=== PATIENT | female | born 1945 | race Asian ===

== ENCOUNTER 2018-05-17 19:09 | Emergency (ER) | payer SELFPAY ==
--- NOTE | 2018-05-17 19:20 | ER Report ---
History and Physical Time Seen By MD: 19:20 HPI/ROS CHIEF COMPLAINT: High blood pressure HISTORY OF PRESENT ILLNESS: This is a 72-year-old female from [facility] visiting her son who presents to the emergency department for hypertension. The patient has been intermittent for approximately 3 weeks, they were in [facility] last week and upon returning recently the patient noted her blood pressure had started to increase. Patient does take 25 mg metoprolol splits it in half takes half the morning and half in the evening. Over the last week or so she's had intermittent lightheadedness when she gets up in the morning however that does resolve, no other complaints no headaches no nausea or vomiting. No chest pain or shortness of breath. At home they noted the systolic blood pressure above 190. She was instructed to take amlodipine for systolic blood pressure greater than 180, but she left it in [place]. REVIEW OF SYSTEMS: Respiratory: No cough, no dyspnea. Cardiovascular: No chest pain, no palpitations. Gastrointestinal: No vomiting, no abdominal pain. Musculoskeletal: No back pain. Allergies: Coded Allergies: No Known Drug Allergies (Unverified , 05/17/18) Home Meds Active Scripts Amlodipine Besylate (AMLODIPINE BESYLATE) 5 Mg Tablet, 0.5 TAB PO QDAY, #15 TAB 0 Refills Take 2.5 mg amlodipine tablet for systolic blood pressure over 180. Prov:AIDEN MOORE RADIOGRAPHER MAMMOGRAPHER-BC 05/17/18 Reported Medications [Cholesterol Med] No Conflict Check 05/17/18 Metoprolol Tartrate (METOPROLOL TARTRATE) 25 Mg Tablet, 1 TAB PO BID, TAB 05/17/18 Past Medical/Surgical History The patient has a past medical and surgical history of hypertension. Reviewed Nurses Notes: Yes Constitutional Vital Sign - Last 24 Hours 05/17/18 05/17/18 05/17/18 05/17/18 19:17 19:17 19:24 19:31 Temp 98.8 Pulse 61 58 Resp 18 B/P (MAP) 182/83 (116) 182/83 194/82 (119) Pulse Ox 95 95 O2 Delivery Room Air 05/17/18 19:39 Pulse 62 Pulse Ox 95 Physical Exam General Appearance: The patient is alert, has no immediate need for airway protection and no current signs of toxicity. Eyes: Pupils equal and round no injection. Respiratory: Chest is non tender, lungs are clear to auscultation. Cardiac: regular rate and rhythm. Gastrointestinal: Abdomen is soft and non tender, no masses, bowel sounds normal. Musculoskeletal: Neck: Neck is supple and non tender. Extremities have full range of motion and are non tender. Skin: No rashes or lesions. DIFFERENTIAL DIAGNOSIS: After history and physical exam differential diagnosis was considered for hypertension. Medical Decision Making ED Course/Re-evaluation ED Course The patient was admitted to room. A history and physical were obtained. Differential diagnoses were considered. Patient had no other concerns other than her hypertension she was given 2.5 mg by mouth amlodipine. The patient tolerated well, her blood pressure came home from 190s systolic to 167 systolic. Patient states she is feeling better. The patient had no questions or concerns at this time and was discharged home. She was also given a prescription for amlodipine instructed to take 2.5 mg as needed for what pressure greater than 180. I also instructed the patient and her son to consider following up with an aura establishing a primary care provider here locally. Decision to Disposition Date: May 17, 2018 Decision to Disposition Time: 20:44 Depart Departure Latest Vital Signs Vital Signs Date Time Temp Pulse Resp B/P (MAP) Pulse Ox O2 Delivery O2 Flow Rate FiO2 05/17/18 19:39 62 95 05/17/18 19:31 194/82 (119) 05/17/18 19:17 98.8 18 Room Air Impression: Primary Impression: Hypertension Condition: Improved Disposition: HOME OR SELF-CARE New Scripts Amlodipine Besylate (AMLODIPINE BESYLATE) 5 Mg Tablet 0.5 TAB PO QDAY, #15 TAB 0 Refills Take 2.5 mg amlodipine tablet for systolic blood pressure over 180. Prov: AIDEN MOORE-WANDA 05/17/18 Patient Instructions: Hypertension (ED) Additional Instructions: Drink plenty of water. Get plenty of rest. Continue taking your Metroprolol as directed. Consider establishing a primary care provider while you are visiting in [place]. Take the amlodipine 2.5 mg for systolic blood pressure greater than 180. Return to the emergency department for any other concerns or worsening symptoms. Problem Qualifiers Primary Impression: Hypertension Hypertension type: essential hypertension Qualified Codes: I10 - Essential ( primary) hypertension AIDEN MOORE RADIOGRAPHER MAMMOGRAPHER-BC May 17, 2018 19:20
[2018-05-17] MEDS ORDERED: METO25TA93 PO (19:25)
[2018-05-17] MEDS ORDERED: CHOLESTEROL MED (19:25)
[2018-05-17] MEDS ORDERED: amLODIPine BESYL(*) 2.5 MG TAB PO ONE (19:40)
[2018-05-17 20:41] VITALS: BP 167/80
[2018-05-17] MEDS ORDERED: AMLO-96 PO (20:43)
== END 2018-05-17 21:05 | disposition home or self-care (01) ==
LOC: ER 19:35
DX: I10 Essential (primary) hypertension (principal)
CPT/HCPCS: 99283